=== PATIENT | female | born 1985 | race Caucasian/White ===

== ENCOUNTER 2023-08-28 11:05 | Outpatient (OUT) | payer OTHER, SELFPAY ==
[2023-08-28 11:26] LABS: Basophils Absolute Auto 0.2 10^3/uL (0.0-0.1); Eosinophils Absolute Auto 1.2 10^3/uL (0.0-0.7); Eosinophils Percent Auto 11.9 % (0.9-7.0); Hematocrit 40.5 % (36.0-48.0); Hemoglobin 13.3 g/dL (12.0-16.0); Immature Granulocytes Abs Auto 0.03 10^3/uL (0.00-0.03); Immature Granulocytes Pct Auto 0.3 % (0.0-0.5); Lymphocytes Absolute Auto 2.4 10^3/uL (1.2-3.8); Lymphocytes Percent Auto 24.7 % (20.5-60.0); Mean Corpuscular HGB Conc 32.8 g/dL (29.9-35.2); Mean Corpuscular Hemoglobin 29.3 pg (26.7-34.0); Mean Corpuscular Volume 89.2 fL (81.0-99.0); Monocytes Absolute Auto 0.6 10^3/uL (0.3-0.8); Monocytes Percent Auto 5.6 % (1.7-12.0); Neutrophils Absolute Auto 5.4 10^3/uL (1.4-6.5); Neutrophils Percent Auto 55.5 % (43.0-75.0); Platelet Count 327 10^3/uL (150-450); Red Blood Count 4.54 10^6/uL (4.20-5.40); Red Cell Distribution Width 13.4 % (11.0-15.0); White Blood Count 9.8 10^3/uL (4.0-11.0)
[2023-08-28 12:00] LABS: Alanine Aminotransferase 26 U/L (14-59); Albumin Globulin Ratio 0.9; Albumin Level 3.4 g/dL (3.4-5.0); Alkaline Phosphatase 84 U/L (46-116); Anion Gap 11.7; Aspartate Amino Transferase 15 U/L (15-37); BUN Creatinine Ratio 9.8; Bilirubin Total 0.2 mg/dL (0.2-1.0); Calcium 8.6 mg/dL (8.5-10.1); Carbon Dioxide 27.3 mmol/L (21.0-32.0); Chloride 105 mmol/L (98-107); Chol HDL Ratio 4.1; Cholesterol 164 mg/dL (<=200); Estimated GFR (African America >60 (>=60); Estimated GFR (Non-African Ame >60 (>=60); Globulin 3.6 g/dL; Glucose 108 mg/dL (74-106); HDL Cholesterol 40 mg/dL (40-60); LDL Cholesterol Calculated 94.8 mg/dL; Sodium 140 mmol/L (136-145); Thyroid Stimulating Hormone <0.007 uIU/mL (0.358-3.740); Triglycerides 146 mg/dL (<=150); VLDL CHOLESTEROL 29.2 mg/dL
[2023-08-28 12:32] LABS: Estimated Average Glucose 120 mg/dL; Glycohemoglobin A1C 5.8 % (4.5-6.2)
== END 2023-08-28 11:06 | disposition home or self-care (01) ==
LOC: LAB 11:07
PROVIDERS: PCP Family Medicine; Visit Provider Family Medicine
DX: Z00.00 Encounter for general adult medical examination without abnormal findings (principal); E78.5 Hyperlipidemia, unspecified; R73.09 Other abnormal glucose
CPT/HCPCS: 36415; 80053; 80061; 83036; 84436; 84443; 84481; 85025

== ENCOUNTER 2023-12-28 11:57 | Outpatient (OUT) | payer OTHER, SELFPAY ==
--- OUTSIDE RECORDS SUMMARY | 2023-12-28 12:09 | XMS_ITS | CCD ---
Author Organization [facility] Care Team Providers Care Continuous Mining Machine Operator Name Role Phone DR ARNULFO VELOZ Attending Unavailable IVAN, DR ARREDONDO Primary Care Unavailable IVAN, DR ARREDONDO Admitting Unavailable IVAN, DR ARREDONDO Admitting Unavailable IVAN, DR ARREDONDO Attending Unavailable IVAN, DR ARREDONDO Consulting Unavailable IVAN, DR ARREDONDO Primary Care Unavailable IVAN, DR ARREDONDO Attending Unavailable IVAN, DR ARREDONDO Consulting Unavailable IVAN, DR ARREDONDO Primary Care Unavailable IVAN, DR ARREDONDO Admitting Unavailable IVAN, DR ARREDONDO Attending Unavailable IVAN, DR ARREDONDO Primary Care Unavailable IVAN, DR ARREDONDO Admitting Unavailable Arnulfo Veloz MD Primary Care Provider [phone] ARNULFO VELOZ Primary Care Unavailable Allergies Allergy Classification Reported Allergen(s) Allergy Type Date of Onset Reaction(s) Facility (2 sources) Amoxicillin Drug Allergy [facility] Repository (1 source) Amoxicillin Drug Allergy 10-19-2015 [facility] Medications Current Medications Medication Drug Class(es) Dates Sig (Normalized) Sig (Original) indomethacin 50 mg oral capsule (1 source) Nonsteroidal Anti-inflammatory Drug Start: 01-23-2019 take 1 capsule by mouth three times daily as needed for pain indomethacin (INDOCIN) 50 MG capsule Take 1 capsule by mouth 3 times daily as needed for Pain (Headache) 12 capsule 0 01/23/2019 Active thyroid (senior living) 60 mg oral tablet (1 source) take 3 tablets by mouth once daily thyroid (ARMOUR) 60 MG tablet Take 180 mg by mouth daily 0 Active Problems Problem Classification Problem Date Documented Da te Episodic/Chronic Other non-traumatic joint disorders (2 sources) Ankle pain; Translations: [Ankle Pain] Onset: 06-27-2022 Episodic Sprains and strains (1 source) Sprain of ankle; Translations: [Sprain of other ligament of left ankle, initial encounter] Episodic Thyroid disorders (4 sources) Hypothyroidism, unspecified; Translations: [HYPOTHYROIDISM UNSPECIFIED] Onset: 09-13-2021 Chronic Results Test Name Value Interpretation Reference Range Facility XR ANKLE LEFT (MIN 3 VIEWS)o n 06-27-2022 XR ANKLE LEFT (MIN 3 VIEWS) EXAMINATION: THREE XRAY VIEWS OF THE LEFT ANKLE 06/27/2022 6:30 pm COMPARISON: None. HISTORY: Acute pain. FINDINGS: No acute fracture or dislocation. Minimal soft tissue swelling best seen on the lateral view. IMPRESSION: No acute osseous abnormality. Interpreted by: Sunny Cronin MD Signed by: Sunny Cronin MD 06/27/22 Final result Normal [facility] No acute osseous abnormality. [facility] EXAMINATION: THREE XRAY VIEWS OF THE LEFT ANKLE 06/27/2022 6:30 pm COMPARISON: None. HISTORY: Acute pain. FINDINGS: No acute fracture or dislocation. Minimal soft tissue swelling best seen on the lateral view. [facility] Sunny Cronin MD - 06/27/2022 EXAMINATION: THREE XRAY VIEWS OF THE LEFT ANKLE 06/27/2022 6:30 pm COMPARISON: None. HISTORY: Acute pain. FINDINGS: No acute fracture or dislocation. Minimal soft tissue swelling best seen on the lateral view. IMPRESSION: No acute osseous abnormality. [facility] Phone: Radiology Study observation (narrative) [facility]: XR ANKLE LEFT (MIN 3 VIEWS)O rdered By: Sunny Cronin on 06-27-2022 [facility]: FREE THYROXINE INDEX T7on FTI 3.59 Normal [facility] Comment on above: Performed By: #### T 7, TSH #### [facility] [address] [place], [place] [address] Dr. Oscar Burnett T3U 37.0 % Normal 23.5-40.5 [facility] Comment on above: Performed By: #### T 7, TSH #### [facility] [address] [place] [address] Dr. Oscar Burnett T4 [Mass/Vol] 9.70 ug/dL Normal 5.53-11.00 [facility] Comment on above: Performed By: #### T 7, TSH #### [facility] [address] [place] [address] Dr. Oscar Burnett TSHon 09-13-2021 TSH Qn m[IU]/L Critically low 0.470-4.680 [facility] Comment on above: Performed By: #### T 7, TSH #### [facility] [address] [place] [address] Dr. Oscar Burnett TSH RANGE SEE BELOW Normal [facility] Comment on above: Result Comment: <0.3 4 UIU/ml HYPERTHYROID 0.34-5.60 UIU/ml EUTHYROID >5.60 UIU/ml HYPOTHYROID Performed By: #### T 7, TSH #### [facility] [address] [place] [address] Dr. Oscar Burnett INSULINon 05-07-2021 Insulin 6.7 uIU/mL Normal 2.6-24.9 [facility] Comment on above: Performed By: #### I NSULIN #### [facility] [address] [place] [address] Dr. Oscar Burnett CBC AUTO DIFFon 05-06-2021 BASO # 0.2 103/ul Critically high 0.0-0.1 [facility] Comment on above: Performed By: #### C BC #### [facility] [address] [place] [address] Dr. Oscar Burnett Basophils/100 WBC (Bld) 2.2 % Critically high 0.2-2.0 [facility] Comment on above: Performed By: #### C BC #### [facility] [address] [place] [address] Dr. Oscar Burnett EO # 1.1 103/ul Critically high 0.0-0.7 [facility] Comment on above: Performed By: #### C BC #### [facility] [address] [place] [address] Dr. Oscar Burnett Eosinophils/100 WBC (Bld) 10.7 % Critically high 0.9-7.0 [facility] Comment on above: Performed By: #### C BC #### [facility] [address] [place] [address] Dr. Oscar Burnett Erythrocyte distribution width (RBC) [Ratio] 14.3 % Normal 11.0-15.0 [facility] Comment on above: Performed By: #### C BC #### [facility] [address] [place] [address] Dr. Oscar Burnett Hematocrit (Bld) [Volume fraction] 44.9 % Normal 36.0-48.0 [facility] Comment on above: Performed By: #### C BC #### [facility] [address] [place] [address] Dr. Oscar Burnett Hemoglobin (Bld) [Mass/Vol] 14.5 g/dL Normal 12.0-16.0 [facility] Comment on above: Performed By: #### C BC #### [facility] [address] [place] [address] Dr. Oscar Burnett IG # 0.02 10e3/ul Normal 0.00-0.03 [facility] Comment on above: Performed By: #### C BC #### [facility] [address] [place] [address] Dr. Oscar Burnett IG % 0.2 % Normal 0.0-0.5 [facility] Comment on above: Performed By: #### C BC #### [facility] [address] [place] [address] Dr. Oscar Burnett LYMPH # 3.5 103/ul Normal 1.2-3.8 [facility] Comment on above: Performed By: #### C BC #### [facility] [address] [place] [address] Dr. Oscar Burnett Lymphocytes/100 WBC (Bld) 34.4 % Normal 20.5-60.0 [facility] Comment on above: Performed By: #### C BC #### [facility] [address] [place] [address] Dr. Oscar Burnett MANUAL DIFF REQ NO Normal [facility] Comment on above: Performed By: #### C BC #### [facility] [address] [place] [address] Dr. Oscar Burnett MCH (RBC) [Entitic mass] 29.1 pg Normal 26.7-34.0 [facility] Comment on above: Performed By: #### C BC #### [facility] [address] [place] [address] Dr. Oscar Burnett MCHC (RBC) [Mass/Vol] 32.3 g/dL Normal 29.9-35.2 [facility] Comment on above: Performed By: #### C BC #### [facility] [address] [place] [address] Dr. Oscar Burnett MCV (RBC) [Entitic vol] 90.0 fL Normal 81.0-99.0 [facility] Comment on above: Performed By: #### C BC #### [facility] [address] [place] [address] Dr. Oscar Burnett MONO # 0.6 103/ul Normal 0.3-0.8 [facility] Comment on above: Performed By: #### C BC #### [facility] [address] [place] [address] Dr. Oscar Burnett Monocytes/100 WBC (Bld) 5.6 % Normal 1.7-12.0 [facility] Comment on above: Performed By: #### C BC #### [facility] [address] [place] [address] Dr. Oscar Burnett NEUT # 4.7 103/ul Normal 1.4-6.5 [facility] Comment on above: Performed By: #### C BC #### [facility] [address] [place] [address] Dr. Oscar Burnett Neutrophils/100 WBC (Bld) 46.9 % Normal 43.0-75.0 [facility] Comment on above: Performed By: #### C BC #### [facility] [address] [place] [address] Dr. Oscar Burnett Platelet mean volume (Bld) [Entitic vol] 10.1 fL Normal 9.5-13.5 [facility] Comment on above: Performed By: #### C BC #### [facility] [address] [place] [address] [address] Oscar Burnett PLT 357 103/ul Normal 150-450 [facility] Comment on above: Performed By: #### C BC #### [facility] [address] [place] [address] [address] Oscar Burnett RBC 4.99 106/ul Normal 4.20-5.40 [facility] Comment on above: Performed By: #### C BC #### [facility] [address] [place] [address] [address] Oscar Burnett WBC 10.1 103/ul Normal 4.0-11.0 [facility] Comment on above: Performed By: #### C BC #### [facility] [address] [place] [address] Dr. Oscar Burnett FREE THYROXINE INDEX T7on FTI 0.25 Normal [facility] Comment on above: Performed By: #### T 7, CMP, TSH, LIPID #### [facility] [address] [place] [address] [address] Oscar Burnett T3U 23.0 % Critically low 23.5-40.5 [facility] Comment on above: Performed By: #### T 7, CMP, TSH, LIPID #### [facility] [address] [place] [address] [address] Oscar Burnett T4 [Mass/Vol] 1.10 ug/dL Critically low 5.53-11.00 [facility] Comment on above: Performed By: #### T 7, CMP, TSH, LIPID #### [facility] [address] [place] [address] [address] Oscar Burnett GLYCOHEMOGLOBIN A1Con 2020 ADA RECOMMENDATION ADA THERAPEUTIC TARGET 6.0 - 7.0 ACTION SUGGESTED > 7.0 Normal [facility] Comment on above: Performed By: #### A 1C #### [facility] [address] [place] [address] Dr. Oscar Burnett Glucose [Mass/Vol] 123 mg/dL Normal [facility] Comment on above: Performed By: #### A 1C #### [facility] [address] [place] [address] [address] Oscar Burnett HbA1c (Bld) [Mass fraction] 5.9 % Normal <=6.0 [facility] Comment on above: Performed By: #### A 1C #### [facility] [address] [address] [address] Oscar Burnett IRONon 05-06-2021 Iron [Mass/Vol] 50.0 ug/dL Normal 37.0-170.0 [facility] Comment on above: Performed By: #### I GILDA #### [facility] [address] [place] [address] [address] Oscar Burnett LIPID PROFILEon 05-06-2021 CHOL-HDL RATIO NORM SEE BELOW Normal [facility] Comment on above: Result Comment: 3.3 - 4.4 LOW RISK 4.4 - 7.1 AVERAGE RISK 7.1 - 11.0 MODERATE RISK >11.0 HIGH RISK Performed By: #### T 7, CMP, TSH, LIPID #### [facility] [address] [address] [address] Oscar Burnett Cholesterol [Mass/Vol] 231 mg/dL Critically high <=200 [facility] Comment on above: Performed By: #### T 7, CMP, TSH, LIPID #### [facility] [address] [address] [address] Oscar Burnett Cholesterol in HDL [Mass/Vol] 46 mg/dL Normal [facility] Comment on above: Performed By: #### T 7, CMP, TSH, LIPID #### [facility] [address] [address] [address] Oscar Burnett Cholesterol in LDL [Mass/Vol] 148.4 mg/dL Normal [facility] Comment on above: Performed By: #### T 7, CMP, TSH, LIPID #### [facility] [address] [address] [address] Oscar Burnett Cholesterol.total/Ch olesterol in HDL [Mass ratio] 5.0 {ratio} Normal [facility] Comment on above: Performed By: #### T 7, CMP, TSH, LIPID #### [facility] [address] [address] [address] Oscar Burnett HDL NORMAL > or = 60 mg/dl - LOW CARDIOVASCULAR RISK <40 mg/dl - HIGH CARDIOVASCULAR RISK Normal [facility] Comment on above: Performed By: #### T 7, CMP, TSH, LIPID #### [facility] [address] [address] [address] Oscar Burnett LDL CALC NORMAL SEE BELOW Normal [facility] Comment on above: Result Comment: <100 mg/dl OPTIMAL 100 - 129 mg/dl NEAR OR ABOVE OPTIMAL 130 - 159 mg/dl BORDERLINE HIGH 160 - 189 mg/dl HIGH >190 mg/dl VERY HIGH Performed By: #### T 7, CMP, TSH, LIPID #### [facility] [address] [address] [address] Oscar Burnett Triglyceride [Mass/Vol] 183 mg/dL Critically high <=150 [facility] Comment on above: Performed By: #### T 7, CMP, TSH, LIPID #### [facility] [address] [address] [address] Oscar Burnett VLDL CALC 36.6 mg/dL Normal [facility] Comment on above: Performed By: #### T 7, CMP, TSH, LIPID #### [facility] [address] [address] [address] Oscar Burnett PROF 14(COMP METB)on 021 Albumin [Mass/Vol] 3.9 g/dL Normal 3.5-5.0 [facility] Comment on above: Performed By: #### T 7, CMP, TSH, LIPID #### [facility] [address] [address] [address] Oscar Burnett Albumin/Globulin [Mass ratio] 1.1 {ratio} Normal [facility] Comment on above: Performed By: #### T 7, CMP, TSH, LIPID #### [facility] [address] [address] [address] Oscar Burnett ALP [Catalytic activity/Vol] 75 U/L Normal 38-126 [facility] Comment on above: Performed By: #### T 7, CMP, TSH, LIPID #### [facility] [address] [place] [address] Dr. Oscar Burnett ALT [Catalytic activity/Vol] 26 U/L Normal 9-52 [facility] Comment on above: Performed By: #### T 7, CMP, TSH, LIPID #### [facility] [address] [place] [address] Dr. Oscar Burnett Anion gap [Moles/Vol] 9.0 mmol/L Normal [facility] Comment on above: Performed By: #### T 7, CMP, TSH, LIPID #### [facility] [address] [place] [address] Dr. Oscar Burnett AST [Catalytic activity/Vol] 22 U/L Normal 14-36 [facility] Comment on above: Performed By: #### T 7, CMP, TSH, LIPID #### [facility] [address] [place] [address] Dr. Oscar Burnett Bilirubin [Mass/Vol] 0.3 mg/dL Normal 0.2-1.3 [facility] Comment on above: Performed By: #### T 7, CMP, TSH, LIPID #### [facility] [address] [place] [address] Dr. Oscar Burnett Calcium [Mass/Vol] 8.6 mg/dL Normal 8.4-10.2 [facility] Comment on above: Performed By: #### T 7, CMP, TSH, LIPID #### [facility] [address] [place] [address] Dr. Oscar Burnett Chloride [Moles/Vol] 102 mmol/L Normal 98-107 [facility] Comment on above: Performed By: #### T 7, CMP, TSH, LIPID #### [facility] [address] [place] [address] Dr. Oscar Burnett CO2 [Moles/Vol] 28.5 mmol/L Normal 22.0-30.0 [facility] Comment on above: Performed By: #### T 7, CMP, TSH, LIPID #### [facility] [address] [address] [address] Oscar Burnett Creatinine [Mass/Vol] 1.18 mg/dL Critically high 0.52-1.04 [facility] Comment on above: Performed By: #### T 7, CMP, TSH, LIPID #### [facility] [address] [place] [address] [address] Oscar Burnett EGFR-AF TUNISIAN >60 Normal >=60 [facility] Comment on above: Performed By: #### T 7, CMP, TSH, LIPID #### [facility] [address] [address] [address] Oscar Burnett EGFR-NON AF TUNISIAN 52 mL/min/1.73m2 Critically low >=60 [facility] Comment on above: Performed By: #### T 7, CMP, TSH, LIPID #### [facility] [address] [place] [address] Dr. Oscar Burnett Globulin (S) [Mass/Vol] 3.5 g/dL Normal [facility] Comment on above: Performed By: #### T 7, CMP, TSH, LIPID #### [facility] [address] [address] [address] Oscar Burnett Glucose [Mass/Vol] 98 mg/dL Normal 74-106 [facility] Comment on above: Performed By: #### T 7, CMP, TSH, LIPID #### [facility] [address] [address] [address] Oscar Burnett Potassium [Moles/Vol] 3.5 mmol/L Normal 3.4-5.0 [facility] Comment on above: Performed By: #### T 7, CMP, TSH, LIPID #### [facility] [address] [address] [address] Oscar Burnett Protein [Mass/Vol] 7.4 g/dL Normal 6.1-8.2 [facility] Comment on above: Performed By: #### T 7, CMP, TSH, LIPID #### [facility] [address] [address] [address] Oscar Burnett Sodium [Moles/Vol] 136 mmol/L Critically low 137-145 [facility] Comment on above: Performed By: #### T 7, CMP, TSH, LIPID #### [facility] [address] [address] [address] Oscar Burnett Urea nitrogen [Mass/Vol] 8.0 mg/dL Normal 7.0-17.0 [facility] Comment on above: Performed By: #### T 7, CMP, TSH, LIPID #### [facility] [address] [place] [address] Dr. Oscar Burnett Urea nitrogen/Creatinine [Mass ratio] 6.8 mg/mg Normal [facility] Comment on above: Performed By: #### T 7, CMP, TSH, LIPID #### [facility] [address] [place] [address] Dr. Oscar Burnett TSHon 05-06-2021 TSH Qn m[IU]/L Critically high 0.470-4.680 [facility] Comment on above: Performed By: #### T 7, CMP, TSH, LIPID #### [facility] [address] [place] [address] Dr. Oscar Burnett TSH RANGE SEE BELOW Normal [facility] Comment on above: Result Comment: <0.3 4 UIU/ml HYPERTHYROID 0.34-5.60 UIU/ml EUTHYROID >5.60 UIU/ml HYPOTHYROID Performed By: #### T 7, CMP, TSH, LIPID #### [facility] [address] [place] [address] Dr. Oscar Burnett Vital Signs Date Time Vital Sign Value Performing Clinician Faci lity 06-27-2022 20:38-0500 Heart rate 88 /min Arnulfo Veloz MD Work Phone: [facility] 06-27-2022 20:00-0500 Diastolic blood pressure 79 mm[Hg] Arnulfo Veloz MD Work Phone: [facility] 06-27-2022 20:00-0500 Respiratory rate 18 /min Arnulfo Veloz MD Work Phone: [facility] 06-27-2022 20:00-0500 SaO2% (BldA) [Mass fraction] 100 % Arnulfo Veloz MD Work Phone: [facility] [employer] 06-27-2022 20:00-0500 Systolic blood pressure 134 mm[Hg] Arnulfo Veloz MD [facility] 06-27-2022 18:21-0500 Body height 165.1 cm Arnulfo Veloz MD Work Phone: [facility] 06-27-2022 18:21-0500 Body mass index (BMI) [Ratio] 28.46 kg/m2 Arnulfo Veloz MD Work Phone: [facility] 06-27-2022 18:21-0500 Body temperature 98.1 [degF] Arnulfo Veloz MD Work Phone: [facility] 06-27-2022 18:21-0500 Body weight 77.56 kg Arnulfo Veloz MD Work Phone: [facility] Encounters Encounter Date Encounter Type Care Provider Facility Start: 06-27-2022 Emergency department patient visit [facility] Start: 06-27-2022 End: 06-27-2022 Emergency department patient visit Arnulfo Veloz MD Work Phone: [facility] ED Comment on above: Sprain of other liga ment of left ankle, initial encounter (Primary Dx) Start: 09-13-2021 End: 09-14-[address] ARNULFO VELOZ Facility:[facility] Start: 06-10-[address] ARNULFO VELOZ Facility :[facility] Start: 05-14-2021 Encounter for genera l adult medical examination without abnormal findings DR ARNULFO VELOZ [facility] Start: 05-06-2021 End: 05-07-[address] ARNULFO VELOZ Facility:[facility] Start: 05-06-2021 End: 05-07-2021 Encounter for general adult medical examination without abnormal findings DR ARNULFO VELOZ Facility:[facility] Start: 03-25-[address] ARNULFO VELOZ Facility :[facility] Procedures Date Procedure Procedure Detail Performing Clinician Start: 06-27-2022 Radex ankle complete minimum 3 views Inga Miles MD Work Phone: Plan of Treatment Date Care Activity Detail Author Start: 02-14-2022 Influenza vaccination Flu vaccine (# 1) [facility] [employer] Start: 09-30-2019 Diabetes screen Diabetes screen [facility] Start: 2014 Screening for malign ant neoplasm of cervix [facility] Start: 2005 Screening for malign ant neoplasm of cervix Pap smear [facility] Start: 09-30-2003 DTaP/Tdap/Td vaccine (1 - Tdap) DTaP/Tdap/Td vaccine (1 - Tdap) [facility] Start[facility] 2002 Hepatitis C screening Hepatitis C sc reen [facility] Start: 09-30-1999 HIV screening HIV screen [facility] Start: 1996 Depression Screen Depression Screen [facility] Start: 1985 Varicella vaccine (1 of 2 - 2-dose childhood series) Varicella vaccine (1 of 2 - 2-dose childhood series) [facility] Start: 04-01-1985 COVID-19 Vaccine (#1) COVID-19 Vacci ne (#1) [facility] Payers Date Payer Category Payer Unknown [id number] 2.16.84 [id number] 1984 Unknown [id number] 2.16.84 [id number] 1984 Unknown [id number] 2.16.84 [id number] 1984 Unknown [id number] 2.16.84 [id number] 1984 Unknown [id number] [id number] 1959 Self-pay [id number] 1959 Unknown [id number] Social History Date Type Detail Facility Start: 01-23-2019 [facility] History of tobacco use Cigarette Smoker B ON [employer] Phone: Start: 01-23-2019 Cigarettes smoked current (pack per day) - Reported 0.5 [facility] [employer] Phone: Start: 01-23-2019 Tobacco use and exposure Smoke less tobacco non-user [facility] [employer] Phone: Start: 1984 Sex Assigned At Not on file [facility] [employer] Phone: Start: 06-17-2022 End: 06-27-2022 Exposure to SARS-CoV-2 (event) Not sure [facility] [employer] Phone: Hospital Discharge instructions 06-27-2022 Discharge InstructionsAttachments Note Date & Type Note Facility 06-27-2022 Hospital Discharg e instructions Remigio Hagen PA-C - 06/27/2022 8:30 PM EST Follow-up with orthopedic doctor 7 to 10 days for reevaluation. Follow crutch walking RICE instructions wear ankle splint for comfort. Take Tylenol or Motrin as directed for discomfort. Promptly return to emergency department for new, changing, worsening of symptoms or other concerns. The following attachments cannot be sent through Care Everywhere.Ankle Sprain (Czech)RICE: General Info (Czech)Crutch Instructions: General Info (Czech)documented in this encounter [employer] Phone: Evaluation note Note Date & Type Note Facility Evaluation note Diagnosis Sprain of other ligament of left ankle, initial encounter- Primary documented in this encounter [employer] Phone: Summary Purpose Family History No Family History Records FoundNo Family History Records Found Advance Directives No Advanced Directives Records FoundNo Advanced Directives Records Found Additional Source Comments INFORMATION SOURCE (unrecogn ized section and content) DATE CREATED AUTHOR 09/16/2021 [facility] DATE CREATED AUTHOR AUTHOR'S ORGANIZ ATION [facility] Reason for Visit (unrecogniz ed section and content) Reason Comments Ankle Pain Fell down 2 steps th inks she rolled it pain on lateral left ankle minimal swelling pulses intact, this happened at 1630 today Care Teams (unrecognized sec tion and content) [employer] Relationship Specialty Start Date End Date Arnulfo Veloz MD [address] [place] [address] PCP - General 10/19/15 FOR RECORDS PERTAINING TO PATIENTS WHO ARE OR HAVE BEEN ENROLLED IN A CHEMICAL DEPENDENCY/SUBSTANCEABUSE PROGRAM, SOME INFORMATION MAY BE OMITTED. This clinical summary was aggregated from multiple sources. Caution should be exercised in using it in the provision of clinical care. This summary normalizes information from multiple sources, and as a consequence, information in this document may materially change the coding, format and clinical context of patient data. In addition, data may be omitted in some cases. CLINICAL DECISIONS SHOULD BE BASED ON THE PRIMARY CLINICAL RECORDS. [facility] [employer] provides no warranty or guarantee of the accuracy or completeness of information in this document.
[2023-12-28 12:44] LABS: Basophils Absolute Auto 0.2 10^3/uL (0.0-0.1); Basophils Percent Auto 2.7 % (0.2-2.0); Hematocrit 41.5 % (36.0-48.0); Hemoglobin 13.7 g/dL (12.0-16.0); Immature Granulocytes Abs Auto 0.01 10^3/uL (0.00-0.03); Immature Granulocytes Pct Auto 0.1 % (0.0-0.5); Lymphocytes Absolute Auto 2.3 10^3/uL (1.2-3.8); Lymphocytes Percent Auto 28.8 % (20.5-60.0); Mean Corpuscular Hemoglobin 28.7 pg (26.7-34.0); Mean Corpuscular Volume 86.8 fL (81.0-99.0); Mean Platelet Volume 10.3 fL (9.5-13.5); Monocytes Absolute Auto 0.6 10^3/uL (0.3-0.8); Monocytes Percent Auto 7.6 % (1.7-12.0); Neutrophils Absolute Auto 3.9 10^3/uL (1.4-6.5); Neutrophils Percent Auto 48.8 % (43.0-75.0); Platelet Count 344 10^3/uL (150-450); Red Blood Count 4.78 10^6/uL (4.20-5.40); Red Cell Distribution Width 13.3 % (11.0-15.0); White Blood Count 7.9 10^3/uL (4.0-11.0)
[2023-12-28 13:10] LABS: Estimated Average Glucose 120 mg/dL; Glycohemoglobin A1C 5.8 % (4.5-6.2)
[2023-12-28 13:20] LABS: Alanine Aminotransferase 32 U/L (14-59); Albumin Globulin Ratio 1.1; Albumin Level 3.7 g/dL (3.4-5.0); Alkaline Phosphatase 76 U/L (46-116); Anion Gap 14.1; Aspartate Amino Transferase 15 U/L (15-37); BUN Creatinine Ratio 9.2; Bilirubin Total 0.3 mg/dL (0.2-1.0); Calcium 8.5 mg/dL (8.5-10.1); Carbon Dioxide 24.9 mmol/L (21.0-32.0); Chloride 104 mmol/L (98-107); Chol HDL Ratio 3.7; Cholesterol 151 mg/dL (<=200); Estimated GFR (African America >60 (>=60); Estimated GFR (Non-African Ame >60 (>=60); Free T3 4.36 pg/mL (2.18-3.98); Globulin 3.4 g/dL; Glucose 124 mg/dL (74-106); HDL Cholesterol 41 mg/dL (40-60); LDL Cholesterol Calculated 94.2 mg/dL; Sodium 139 mmol/L (136-145); Thyroid Stimulating Hormone <0.007 uIU/mL (0.358-3.740); Total Protein 7.1 g/dL (6.4-8.2); Triglycerides 79 mg/dL (<=150); VLDL CHOLESTEROL 15.8 mg/dL
[2023-12-29 10:09] LABS: Insulin 10.8 uIU/mL (2.6-24.9)
== END 2023-12-28 11:58 | disposition home or self-care (01) ==
LOC: LAB 12:00
PROVIDERS: PCP Family Medicine; Visit Provider Family Medicine
DX: E03.9 Hypothyroidism, unspecified (principal); G43.909 Migraine, unspecified, not intractable, without status migrainosus; F17.200 Nicotine dependence, unspecified, uncomplicated
CPT/HCPCS: 36415; 80053; 80061; 82306; 82607; 82746; 83036; 83525; 83540; 84436; 84443; 84481; 85025

== ENCOUNTER 2024-01-31 10:25 | Outpatient (OUT) | payer OTHER, SELFPAY ==
--- NOTE | 2024-01-31 10:28 | US_ITS ---
The [address] [address] Patient Name: JUNE COTO MRN: [id number] date: 1985 Sex: F Assigned Patient Location: US Current Patient Location: Accession/Order Number: [id number] Exam Date: 01/31/2024 10:29 Report Date: 02/01/2024 04:48 At the request of: ARNULFO LOVE Procedure: US right upper quadrant EXAMINATION: US right upper quadrant HISTORY: Right Upper Quadrant Pain R10.11 COMPARISON: No relevant comparison available. TECHNIQUE: Transabdominal evaluation of the right upper quadrant. FINDINGS: LIVER: Normal size and echotexture. Color Doppler demonstrates patent hepatic veins. PORTAL VEIN: Duplex Doppler demonstrates normal hepatopetal flow pattern with flow velocity averaging 32 cm/s. GALLBLADDER: No visible gallstones, wall thickening, or pericholecystic free fluid. Negative sonographic Stoddard's sign. BILIARY: No abnormal dilation or stones. Common bile duct diameter is within normal limits. PANCREAS: No visible mass, abnormal atrophy, or duct dilation. KIDNEY: No hydronephrosis. No visible mass or stones. Size: 10.8 x 5.0 x 4.7 cm US/US right upper quadrant IMPRESSION: 1. No acute or suspicious right upper quadrant findings. Electronically authenticated by: JOHNNY SESAY Date: 02/01/2024 04:48
--- OUTSIDE RECORDS SUMMARY | 2024-01-31 10:48 | XMS_ITS | CCD ---
Author Organization [facility] Care Team Providers Care [employer] Name Role Phone DR ARNULFO VELOZ Attending [...] Unavailable Arnulfo Veloz MD Primary Care Provider [phone] ARNULFO VELOZ Primary Care Unavailable Allergies Allergy Classification Reported Allergen(s) Allergy Type Date of Onset Reaction(s) Facility (2 sources) Amoxicillin Drug Allergy [facility] Repository (1 source) Amoxicillin Drug Allergy 10-19-[address] [facility] Medications Current Medications Medication Drug Class(es) Dates Sig (Normalized) Sig (Original) indomethacin 50 mg oral capsule (1 source) Nonsteroidal Anti-inflammatory Drug Start: 01-23-2019 take 1 capsule by mouth three times daily as needed for pain indomethacin (INDOCIN) 50 MG capsule Take 1 capsule by mouth 3 times daily as needed for Pain (Headache) 12 capsule 0 01/23/2019 Active thyroid (shelter) 60 mg oral tablet (1 source) take [...] Sunny Cronin MD 06/27/22 Final result Normal [facility] No acute osseous abnormality. [facility] EXAMINATION: THREE XRAY VIEWS OF THE LEFT ANKLE 06/27/2022 6:30 pm COMPARISON: None. HISTORY: Acute pain. FINDINGS: No acute fracture or dislocation. Minimal soft tissue swelling best seen on the lateral view. [facility] Sunny Cronin MD - 06/27/2022 EXAMINATION: THREE XRAY VIEWS OF THE LEFT ANKLE 06/27/2022 6:30 pm COMPARISON: None. HISTORY: Acute pain. FINDINGS: No acute fracture or dislocation. Minimal soft tissue swelling best seen on the lateral view. IMPRESSION: No acute osseous abnormality. [email or web address] Phone: Radiology Study observation (narrative) [facility] [employer] Phone: XR ANKLE LEFT (MIN 3 VIEWS)O rdered By: Sunny Cronin on 06-27-2022 [facility] [employer] Phone: FREE THYROXINE INDEX T7on FTI 3.59 Normal [facility] Comment on above: Performed By: #### T 7, TSH #### [facility] [address] [place] [address] Dr. Oscar Burnett T3U 37.0 % Normal 23.5-40.5 [facility] Comment on above: Performed By: #### T 7, TSH #### [facility] [address] [address] [address] Oscar Burnett T4 [Mass/Vol] 9.70 ug/dL Normal 5.53-11.00 [facility] Comment on above: Performed By: #### T 7, TSH #### [facility] [address] [place] [address] Dr. Oscar Burnett TSHon 09-13-2021 TSH Qn m[IU]/L Critically low 0.470-4.680 [facility] Comment on above: Performed By: #### T 7, TSH #### [facility] [address] [place] [address] Dr. Oscar Burnett TSH RANGE SEE BELOW Normal [facility] Comment on above: Result Comment: <0.3 4 UIU/ml HYPERTHYROID 0.34-5.60 UIU/ml EUTHYROID >5.60 UIU/ml HYPOTHYROID Performed By: #### T 7, TSH #### [facility] [address] [place] [address] Dr. Oscar Burnett INSULINon 05-07-2021 Insulin 6.7 uIU/mL Normal 2.6-24.9 [facility] Comment on above: Performed By: #### I NSULIN #### [facility] [address] [place] [address] Dr. Oscar Burnett CBC AUTO DIFFon 05-06-2021 BASO # 0.2 103/ul Critically high 0.0-0.1 [facility] Comment on above: Performed By: #### C BC #### [facility] [address] [place] [address] Dr. Oscar Burnett Basophils/100 WBC (Bld) 2.2 % Critically high 0.2-2.0 [facility] Comment on above: Performed By: #### C BC #### [facility] [address] [place] [address] Dr. Oscar Burnett EO # 1.1 103/ul Critically high 0.0-0.7 [facility] Comment on above: Performed By: #### C BC #### [facility] [address] [place] [address] Dr. Oscar Burnett Eosinophils/100 WBC (Bld) 10.7 % Critically high 0.9-7.0 [facility] Comment on above: Performed By: #### C BC #### [facility] [address] [place] [address] Dr. Oscar Burnett Erythrocyte distribution width (RBC) [Ratio] 14.3 % Normal 11.0-15.0 [facility] Comment on above: Performed By: #### C BC #### [facility] [address] [place] [address] Dr. Oscar Burnett Hematocrit (Bld) [Volume fraction] 44.9 % Normal 36.0-48.0 [facility] Comment on above: Performed By: #### C BC #### [facility] [address] [place] [address] Dr. Oscar Burnett Hemoglobin (Bld) [Mass/Vol] 14.5 g/dL Normal 12.0-16.0 [facility] Comment on above: Performed By: #### C BC #### [facility] [address] [place] [address] Dr. Oscar Burnett IG # 0.02 10e3/ul Normal 0.00-0.03 [facility] Comment on above: Performed By: #### C BC #### [facility] [address] [place] [address] Dr. Oscar Burnett IG % 0.2 % Normal 0.0-0.5 [facility] Comment on above: Performed By: #### C BC #### [facility] [address] [place] [address] Dr. Oscar Burnett LYMPH # 3.5 103/ul Normal 1.2-3.8 [facility] Comment on above: Performed By: #### C BC #### [facility] [address] [place] [address] Dr. Oscar Burnett Lymphocytes/100 WBC (Bld) 34.4 % Normal 20.5-60.0 [facility] Comment on above: Performed By: #### C BC #### [facility] [address] [place] [address] Dr. Oscar Burnett MANUAL DIFF REQ NO Normal [facility] Comment on above: Performed By: #### C BC #### [facility] [address] [address] [address] Oscar Burnett MCH (RBC) [Entitic mass] 29.1 pg Normal 26.7-34.0 [facility] Comment on above: Performed By: #### C BC #### [facility] [address] [place] [address] Dr. Oscar Burnett MCHC (RBC) [Mass/Vol] 32.3 g/dL Normal 29.9-35.2 [facility] Comment on above: Performed By: #### C BC #### [facility] [address] [place] [address] Dr. Oscar Burnett MCV (RBC) [Entitic vol] 90.0 fL Normal 81.0-99.0 [facility] Comment on above: Performed By: #### C BC #### [facility] [address] [place] [address] Dr. Oscar Burnett MONO # 0.6 103/ul Normal 0.3-0.8 [facility] Comment on above: Performed By: #### C BC #### [facility] [address] [place] [address] Dr. Oscar Burnett Monocytes/100 WBC (Bld) 5.6 % Normal 1.7-12.0 [facility] Comment on above: Performed By: #### C BC #### [facility] [address] [place] [address] Dr. Oscar Burnett NEUT # 4.7 103/ul Normal 1.4-6.5 [facility] Comment on above: Performed By: #### C BC #### [facility] [address] [place] [address] Dr. Oscar Burnett Neutrophils/100 WBC (Bld) 46.9 % Normal 43.0-75.0 [facility] Comment on above: Performed By: #### C BC #### [facility] [address] [place] [address] Dr. Oscar Burnett Platelet mean volume (Bld) [Entitic vol] 10.1 fL Normal 9.5-13.5 [facility] Comment on above: Performed By: #### C BC #### [facility] [address] [address] [address] Oscar Burnett PLT 357 103/ul Normal 150-450 [facility] Comment on above: Performed By: #### C BC #### [facility] [address] [address] [address] Oscar Burnett RBC 4.99 106/ul Normal 4.20-5.40 [facility] Comment on above: Performed By: #### C BC #### [facility] [address] [address] [address] Oscar Burnett WBC 10.1 103/ul Normal 4.0-11.0 [facility] Comment on above: Performed By: #### C BC #### [facility] [address] [address] [address] Oscar Burnett FREE THYROXINE INDEX T7on FTI 0.25 Normal [facility] Comment on above: Performed By: #### T 7, CMP, TSH, LIPID #### [facility] [address] [address] [address] Oscar Burnett T3U 23.0 % Critically low 23.5-40.5 [facility] Comment on above: Performed By: #### T 7, CMP, TSH, LIPID #### [facility] [address] [address] [address] Oscar Burnett T4 [Mass/Vol] 1.10 ug/dL Critically low 5.53-11.00 [facility] Comment on above: Performed By: #### T 7, CMP, TSH, LIPID #### [facility] [address] [address] [address] Oscar Burnett GLYCOHEMOGLOBIN A1Con 2020 ADA RECOMMENDATION ADA THERAPEUTIC TARGET 6.0 - 7.0 ACTION SUGGESTED > 7.0 [facility] Comment on above: Performed By: #### A 1C #### [facility] [address] [address] [address] Oscar Burnett Glucose [Mass/Vol] 123 mg/dL Normal [facility] Comment on above: Performed By: #### A 1C #### [facility] [address] [address] [address] Oscar Burnett HbA1c (Bld) [Mass fraction] 5.9 % Normal <=6.0 [facility] Comment on above: Performed By: #### A 1C #### [facility] [address] [address] [address] Oscar Burnett IRONon 05-06-2021 Iron [Mass/Vol] 50.0 ug/dL Normal 37.0-170.0 [facility] Comment on above: Performed By: #### I GILDA #### [facility] [address] [address] [address] Oscar Burnett LIPID PROFILEon 05-06-2021 CHOL-HDL RATIO NORM SEE BELOW Normal [facility] Comment on above: Result Comment: 3.3 - 4.4 LOW RISK 4.4 - 7.1 AVERAGE RISK 7.1 - 11.0 MODERATE RISK >11.0 HIGH RISK Performed By: #### T 7, CMP, TSH, LIPID #### [facility] [address] [address] [address] Oscar Burnett Cholesterol [Mass/Vol] 231 mg/dL Critically high <=200 [facility] Comment on above: Performed By: #### T 7, CMP, TSH, LIPID #### [facility] [address] [address] [address] Oscar Burnett Cholesterol in HDL [Mass/Vol] 46 mg/dL Normal [facility] Comment on above: Performed By: #### T 7, CMP, TSH, LIPID #### [facility] [address] [address] [address] Oscar Burnett Cholesterol in LDL [Mass/Vol] 148.4 mg/dL Normal [facility] Comment on above: Performed By: #### T 7, CMP, TSH, LIPID #### [facility] [address] [address] [address] Oscar Burnett Cholesterol.total/Ch olesterol in HDL [Mass ratio] 5.0 {ratio} Normal [facility] Comment on above: Performed By: #### T 7, CMP, TSH, LIPID #### [facility] [address] [address] [address] Oscar Burnett HDL NORMAL > or = 60 mg/dl - LOW CARDIOVASCULAR RISK <40 mg/dl - HIGH CARDIOVASCULAR RISK Normal [facility] Comment on above: Performed By: #### T 7, CMP, TSH, LIPID #### [facility] [address] [address] [address] Oscar Burnett LDL CALC NORMAL SEE BELOW Normal [facility] Comment on above: Result Comment: <100 mg/dl OPTIMAL 100 - 129 mg/dl NEAR OR ABOVE OPTIMAL 130 - 159 mg/dl BORDERLINE HIGH 160 - 189 mg/dl HIGH >190 mg/dl VERY HIGH Performed By: #### T 7, CMP, TSH, LIPID #### [facility] [address] [address] [address] Oscar Burnett Triglyceride [Mass/Vol] 183 mg/dL Critically high <=150 [facility] Comment on above: Performed By: #### T 7, CMP, TSH, LIPID #### [facility] [address] [address] [address] Oscar Burnett VLDL CALC 36.6 mg/dL Normal [facility] Comment on above: Performed By: #### T 7, CMP, TSH, LIPID #### [facility] [address] [address] [address] Oscar Burnett PROF 14(COMP METB)on 021 Albumin [Mass/Vol] 3.9 g/dL Normal 3.5-5.0 [facility] Comment on above: Performed By: #### T 7, CMP, TSH, LIPID #### [facility] [address] [address] [address] Oscar Burnett Albumin/Globulin [Mass ratio] 1.1 {ratio} Normal [facility] Comment on above: Performed By: #### T 7, CMP, TSH, LIPID #### [facility] [address] [address] [address] Oscar Burnett ALP [Catalytic activity/Vol] 75 U/L Normal 38-126 [facility] Comment on above: Performed By: #### T 7, CMP, TSH, LIPID #### [facility] [address] [address] [address] Oscar Burnett ALT [Catalytic activity/Vol] 26 U/L Normal 9-52 [facility] Comment on above: Performed By: #### T 7, CMP, TSH, LIPID #### [facility] [address] [place] [address] Dr. Oscar Burnett Anion gap [Moles/Vol] 9.0 mmol/L Normal [facility] Comment on above: Performed By: #### T 7, CMP, TSH, LIPID #### [facility] [address] [place] [address] Dr. Oscar Burnett AST [Catalytic activity/Vol] 22 U/L Normal 14-36 [facility] Comment on above: Performed By: #### T 7, CMP, TSH, LIPID #### [facility] [address] [place] [address] Dr. Oscar Burnett Bilirubin [Mass/Vol] 0.3 mg/dL Normal 0.2-1.3 [facility] Comment on above: Performed By: #### T 7, CMP, TSH, LIPID #### [facility] [address] [place] [address] Dr. Oscar Burnett Calcium [Mass/Vol] 8.6 mg/dL Normal 8.4-10.2 [facility] Comment on above: Performed By: #### T 7, CMP, TSH, LIPID #### [facility] [address] [place] [address] Dr. Oscar Burnett Chloride [Moles/Vol] 102 mmol/L Normal 98-107 [facility] Comment on above: Performed By: #### T 7, CMP, TSH, LIPID #### [facility] [address] [place] [address] Dr. Oscar Burnett CO2 [Moles/Vol] 28.5 mmol/L Normal 22.0-30.0 [facility] Comment on above: Performed By: #### T 7, CMP, TSH, LIPID #### [facility] [address] [place] [address] Dr. Oscar Burnett Creatinine [Mass/Vol] 1.18 mg/dL Critically high 0.52-1.04 [facility] Comment on above: Performed By: #### T 7, CMP, TSH, LIPID #### [facility] [address] [address] [address] Oscar Burnett EGFR-AF LEBANESE >60 Normal >=60 [facility] Comment on above: Performed By: #### T 7, CMP, TSH, LIPID #### [facility] [address] [address] [address] Oscar Burnett EGFR-NON AF LEBANESE 52 mL/min/1.73m2 Critically low >=60 [facility] Comment on above: Performed By: #### T 7, CMP, TSH, LIPID #### [facility] [address] [place] [address] Dr. Oscar Burnett Globulin (S) [Mass/Vol] 3.5 g/dL Normal [facility] Comment on above: Performed By: #### T 7, CMP, TSH, LIPID #### [facility] [address] [place] [address] Dr. Oscar Burnett Glucose [Mass/Vol] 98 mg/dL Normal 74-106 [facility] Comment on above: Performed By: #### T 7, CMP, TSH, LIPID #### [facility] [address] [place] [address] Dr. Oscar Burnett Potassium [Moles/Vol] 3.5 mmol/L Normal 3.4-5.0 [facility] Comment on above: Performed By: #### T 7, CMP, TSH, LIPID #### [facility] [address] [place] [address] Dr. Oscar Burnett Protein [Mass/Vol] 7.4 g/dL Normal 6.1-8.2 [facility] Comment on above: Performed By: #### T 7, CMP, TSH, LIPID #### [facility] [address] [place] [address] Dr. Oscar Burnett Sodium [Moles/Vol] 136 mmol/L Critically low 137-145 [facility] Comment on above: Performed By: #### T 7, CMP, TSH, LIPID #### [facility] [address] [address] [address] Oscar Burnett Urea nitrogen [Mass/Vol] 8.0 mg/dL Normal 7.0-17.0 [facility] Comment on above: Performed By: #### T 7, CMP, TSH, LIPID #### [facility] [address] [address] [address] Oscar Burnett Urea nitrogen/Creatinine [Mass ratio] 6.8 mg/mg Normal [facility] Comment on above: Performed By: #### T 7, CMP, TSH, LIPID #### [facility] [address] [address] [address] Oscar Burnett TSHon 05-06-2021 TSH Qn m[IU]/L Critically high 0.470-4.680 [facility] Comment on above: Performed By: #### T 7, CMP, TSH, LIPID #### [facility] [address] [address] [address] Oscar Burnett TSH RANGE SEE BELOW Normal [facility] Comment on above: Result Comment: <0.3 4 UIU/ml HYPERTHYROID 0.34-5.60 UIU/ml EUTHYROID >5.60 UIU/ml HYPOTHYROID Performed By: #### T 7, CMP, TSH, LIPID #### [facility] [address] [place] [address] Dr. Oscar Burnett Vital Signs Date Time Vital Sign Value Performing Clinician Usmani venus 06-27-2022 20:38-0500 Heart rate 88 /min Arnulfo Veloz MD Work Phone: [facility] 06-27-2022 20:00-0500 Diastolic blood pressure 79 mm[Hg] Arnulfo Veloz MD Work Phone: [facility] 06-27-2022 20:00-0500 Respiratory rate 18 /min Arnulfo Veloz MD Work Phone: [facility] 06-27-2022 20:00-0500 SaO2% (BldA) [Mass fraction] 100 % Arnulfo Veloz MD Work Phone: [facility] [employer] 06-27-2022 20:00-0500 Systolic blood pressure 134 mm[Hg] Arnulfo Veloz MD Work Phone: [facility] [employer] 06-27-2022 18:21-0500 Body height 165.1 cm Arnulfo Veloz MD Work Phone: [facility] 06-27-2022 18:21-0500 Body mass index (BMI) [Ratio] 28.46 kg/m2 Arnulfo Veloz MD Work Phone: [facility] 06-27-2022 18:21-0500 Body temperature 98.1 [degF] Arnulfo Veloz MD Work Phone: [facility] 06-27-2022 18:21-0500 Body weight 77.56 kg Arnulfo Veloz MD Work Phone: [facility] Encounters Encounter Date Encounter Type Care Provider Facility Start: 06-27-2022 Emergency department patient visit [facility] Start: 06-27-2022 End: 06-27-2022 Emergency department patient visit Arnulfo Veloz MD Work Phone: [facility] ED Comment on above: Sprain of other liga ment of left ankle, initial encounter (Primary Dx) Start: 09-13-2021 End: 09-14-[address] ARNULFO VELOZ Facility:[facility] Start: 06-10-[address] ARNULFO VELOZ Facility :[facility] Start: 05-14-2021 Encounter for genera l adult medical examination without abnormal findings DR ARNULFO VELOZ [facility] Start: 05-06-2021 End: 05-07-[address] ARNULFO [...] 02-14-2022 Influenza vaccination Flu vaccine (# 1) [facility] Start: 09-30-2019 Diabetes screen Diabetes screen [facility] Start: 2014 Screening for malign ant neoplasm of cervix [facility] Start: 2005 Screening for malign ant neoplasm of cervix Pap smear [facility] Start: 09-30-2003 DTaP/Tdap/Td vaccine (1 - Tdap) DTaP/Tdap/Td vaccine (1 - Tdap) [facility] Start: 2002 Hepatitis C screening Hepatitis C sc reen [facility] Start: 09-30-1999 HIV screening HIV screen [facility] Start: 1996 Depression Screen Depression Screen [facility] Start: 1985 Varicella vaccine (1 of 2 - 2-dose childhood series) Varicella vaccine (1 of 2 - 2-dose childhood series) [facility] Start: 04-01-1985 COVID-19 Vaccine (#1) COVID-19 Vacci ne (#1) [facility] Payers Date Payer Category Payer Unknown [id number] 2.16.84 [id number] 1984 Unknown [id number] 2.16.84 [id number] 1984 Unknown [id number] 2.16.84 [id number] 1984 Unknown [id number] 2.16.84 [id number] 1984 Unknown [id number] [id number] 1959 Self-pay [id number] 1959 Unknown [id number] Social History Date Type Detail Facility [facility]: [facility] of tobacco use [facility]igarette Sm[facility] [employer] Work Phone: Start: 01-23-2019 Cigarettes smoked current (pack per day) - Reported 0.5 [employer] Phone: Start: 01-23-2019 Tobacco use and exposure Smoke less tobacco non-user [employer] Phone: Start: 1985 Sex Assigned At Not on file B ON [employer] Phone: Start: 06-17-2022 End: 06-27-2022 Exposure to SARS-CoV-2 (event) Not sure [employer] Phone: Hospital Discharge instructions 06-27-2022 Discharge InstructionsAttachments [...] cannot be sent through Care Everywhere.Ankle Sprain (Croatian)RICE: General Info (Croatian)Crutch Instructions: General Info (Croatian)documented in this encounter [employer] Phone: Evaluation note Note Date & Type Note Facility Evaluation note Diagnosis Sprain of other ligament of left ankle, initial encounter- Primary documented in this encounter [employer] Phone: Summary Purpose Family History No Family History Records FoundNo Family History Records Found Advance Directives No Advanced Directives Records FoundNo Advanced Directives Records Found Additional Source Comments INFORMATION SOURCE (unrecogn ized section and content) DATE CREATED AUTHOR 09/16/2021 [facility] DATE CREATED AUTHOR AUTHOR'S ORGANIZ ATION [facility]2022 [facility] Reason for Visit (unrecogniz ed section and content) Reason Comments Ankle Pain Fell down 2 steps th inks she rolled it pain on lateral left ankle minimal swelling pulses intact, this happened at 1630 today Care Teams (unrecognized sec tion and content) [employer] Relationship Specialty Start Date End Date Arnulfo Veloz MD [address] [place] [address] PCP - General 10/19/15 FOR RECORDS PERTAINING [...] BE BASED ON THE PRIMARY CLINICAL RECORDS. [facility]. provides no warranty or guarantee of the accuracy or completeness of information in this document.
[2024-01-31 13:07] LABS: Free T3 2.98 pg/mL (2.18-3.98)
== END 2024-01-31 10:26 | disposition home or self-care (01) ==
LOC: US 10:25
PROVIDERS: PCP Family Medicine; Visit Provider Family Medicine
DX: R10.11 Right upper quadrant pain (principal); E03.9 Hypothyroidism, unspecified
CPT/HCPCS: 36415; 76705; 84436; 84443; 84481

== ENCOUNTER 2024-04-17 08:56 | Outpatient (OUT) | payer OTHER, SELFPAY ==
--- NOTE | 2024-04-17 08:56 | NM_ITS ---
The [address] [address] Patient Name: JUNE COTO MRN: [id number] date: 1985 Sex: F Assigned Patient Location: [place] Current Patient Location: [place] Accession/Order Number: [id number] Exam Date: 04/17/2024 08:56 Report Date: 04/17/2024 13:07 At the request of: ARNULFO LOVE Procedure: MA hepatobiliary w pharm EXAMINATION: [place] hepatobiliary w pharm HISTORY: RIGHT UPPER QUADRANT PAIN COMPARISON: No relevant comparison available. TECHNIQUE: Radionuclide hepatobiliary imaging was performed after intravenous injection of 4.8 mCi Tc-99m mebrofenin with sequential acquisitions every 1 minute for one hour. Hepatobiliary imaging with gallbladder ejection fraction analysis was then performed with sequential imaging every 1 minute for 60 minutes after the patient drank 8 ounces of ensure. FINDINGS: LIVER: Normal, prompt and uniform radiotracer uptake and clearing. BILIARY DUCTS: Normal radioisotopic biliary excretion. GALLBLADDER: Normal with no evidence of cystic duct obstruction. INTESTINE: Normal with no evidence of common biliary ductal obstruction. EJECTION FRACTION: 80 % within 60 minutes. (Normal EF > 38%). OTHER: Negative. MA/MA hepatobiliary w pharm IMPRESSION: Normal hepatobiliary scan and pharmacologic ejection fraction Electronically authenticated by: LION BEEBE Date: 04/17/2024 13:07
== END 2024-04-17 08:57 | disposition home or self-care (01) ==
LOC: NM 08:56
PROVIDERS: PCP Family Medicine; Visit Provider Family Medicine
DX: R10.11 Right upper quadrant pain (principal)
CPT/HCPCS: 78227; A9537

== ENCOUNTER 2024-05-01 08:51 | Outpatient (OUT) | payer OTHER, SELFPAY ==
--- NOTE | 2024-05-01 08:53 | FL_ITS ---
The [address] [address] Patient Name: JUNE COTO MRN: [id number] date: 1985 Sex: F Assigned [place] Location: [place] Current [place] Location: [place] Accession/Order Number: [id number] Exam Date: 05/01/2024 09:10 Report Date: 05/01/2024 09:55 At the request of: ARNULFO LOVE Procedure: FL upper GI w air PROCEDURE: FL upper GI w air, FL cineradiography COMPARISON: None. FLUORO DOSE: mGy Reference air kerma (Ka,r) HISTORY: Right Upper Quadrant Pain TECHNIQUE: An air contrast upper gastrointestinal series was performed in the usual manner. Standard level fluoroscopic mode of operation utilized. FINDINGS: ESOPHAGUS:Normal. No visible obstruction, dilatation, reflux or hernia STOMACH: Normal. No obstruction, mass, or ulceration. Normal motility. DUODENUM:Normal. No ulceration or diverticulum. OTHER: Negative. FL/FL upper GI w air IMPRESSION: Normal examination. Electronically authenticated by: LION BEEBE Date: 05/01/2024 09:55
== END 2024-05-01 08:52 | disposition home or self-care (01) ==
PROVIDERS: PCP Family Medicine; Visit Provider Family Medicine
DX: R10.11 Right upper quadrant pain (principal)
CPT/HCPCS: 36415; 74246; 76120; 82533

== ENCOUNTER 2024-05-08 08:59 | Outpatient (OUT) | payer OTHER, SELFPAY ==
--- NOTE | 2024-05-08 09:02 | FL_ITS ---
The [address] [address] Patient Name: JUNE COTO MRN: [id number] date: 1985 Sex: F Assigned Patient Location: [place] Current [place] Location: [place] Accession/Order Number: [id number] Exam Date: 05/08/2024 09:10 Report Date: 05/08/2024 10:27 At the request of: ARNULFO LOVE Procedure: FL barium swallow PROCEDURE: FL barium swallow, FL cineradiography COMPARISON: None. HISTORY: right upper quadrant pain R10.11 TECHNIQUE: An air contrast esophagram series was performed in the usual manner. Standard level fluoroscopic mode of operation utilized. FINDINGS: ESOPHAGUS:No visible obstruction, dilatation, reflux or hernia OTHER: Negative. FL/FL barium swallow IMPRESSION: 1. Normal esophagram. 2. Patient describes continuing right upper quadrant intermittent pain with multiple negative prior studies. Patient required about low-grade colitis and antibiotic treatment as well as bowel cleansing, both of which may at some clinical benefit. Patient was recommended to follow up with family physician. Electronically authenticated by: JOHNNY SESAY Date: 05/08/2024 10:27
--- OUTSIDE RECORDS SUMMARY | 2024-05-08 09:04 | XMS_ITS | CCD ---
Author Organization [facility] Care Team Providers Care Material Planning Analyst Name Role Phone DR ARNULFO VELOZ Attending Unavailable IVAN, DR ARREDONDO Primary Care Unavailable IVAN, DR ARREDONDO Admitting Unavailable IVAN, DR ARREDONDO Admitting Unavailable IVAN, DR ARREDONDO Attending Unavailable IVAN, DR ARREDONDO Consulting Unavailable IVAN, DR ARREDONDO Primary Care Unavailable IVAN, DR ARREDONDO Attending Unavailable IVAN, DR ARREDONDO Consulting Unavailable IVAN, DR ARREDONDO Primary Care Unavailable IAVN, DR ARREDONDO Admitting Unavailable IVAN, DR ARREDONDO Attending Unavailable IVAN, DR ARREDONDO Primary Care Unavailable IVAN, DR ARREDONDO Admitting Unavailable Arnulfo Veloz MD Primary Care Provider [phone] ARNULFO VELOZ Primary Care Unavailable Allergies Allergy Classification Reported Allergen(s) Allergy Type Date of Onset Reaction(s) Facility (2 sources) Amoxicillin Drug Allergy [facility] Repository (1 source) Amoxicillin Drug Allergy 10-19-2015 [facility] Medications Current Medications Medication Drug Class(es) Dates Sig (Normalized) Sig (Original) indomethacin 50 mg oral capsule (1 source) Nonsteroidal Anti-inflammatory Drug Start: 01-23-2019 take 1 capsule by mouth three times daily as needed for pain indomethacin (INDOCIN) 50 MG capsule Take 1 capsule by mouth 3 times daily as needed for Pain (Headache) 12 capsule 0 01/23/2019 Active thyroid (alf) 60 mg oral tablet (1 source) take [...] Sunny Cronin MD 06/27/22 Final result Normal [facility] No acute osseous abnormality. [facility] EXAMINATION: THREE XRAY VIEWS OF THE LEFT ANKLE 06/27/2022 6:30 pm COMPARISON: None. HISTORY: Acute pain. FINDINGS: No acute fracture or dislocation. Minimal soft tissue swelling best seen on the lateral view. [facility] Sunny Cronin MD - 06/27/2022 EXAMINATION: THREE XRAY VIEWS OF THE LEFT ANKLE 06/27/2022 6:30 pm COMPARISON: None. HISTORY: Acute pain. FINDINGS: No acute fracture or dislocation. Minimal soft tissue swelling best seen on the lateral view. IMPRESSION: No acute osseous abnormality. [facility] Phone: Radiology Study observation (narrative) [facility] [employer] Phone: XR ANKLE LEFT (MIN 3 VIEWS)O rdered By: Sunny Cronin on 06-27-2022 [facility] [employer] Phone: FREE THYROXINE INDEX T7on FTI 3.59 Normal [facility] Comment on above: Performed By: #### T 7, TSH #### [facility] [address] [place] [address] Dr. Oscar Burnett T3U 37.0 % Normal 23.5-40.5 [facility] Comment on above: Performed By: #### T 7, TSH #### [facility] [address] [address] [address] Oscar Burnett T4 [Mass/Vol] 9.70 ug/dL Normal 5.53-11.00 [facility] Comment on above: Performed By: #### T 7, TSH #### [facility] [address] [place] [address] Dr. Oscar Burnett TSHon 09-13-2021 TSH Qn m[IU]/L Critically low 0.470-4.680 [facility] Comment on above: Performed By: #### T 7, TSH #### [facility] [address] [place] [address] Dr. Oscar Burnett TSH RANGE SEE BELOW Normal [facility] Comment on above: Result Comment: <0.3 4 UIU/ml HYPERTHYROID 0.34-5.60 UIU/ml EUTHYROID >5.60 UIU/ml HYPOTHYROID Performed By: #### T 7, TSH #### [facility] [address] [place] [address] Dr. Oscar Burnett INSULINon 05-07-2021 Insulin 6.7 uIU/mL Normal 2.6-24.9 [facility] Comment on above: Performed By: #### I NSULIN #### [facility] [address] [place] [address] Dr. Oscar Burnett CBC AUTO DIFFon 05-06-2021 BASO # 0.2 103/ul Critically high 0.0-0.1 [facility] Comment on above: Performed By: #### C BC #### [facility] [address] [place] [address] Dr. Oscar Burnett Basophils/100 WBC (Bld) 2.2 % Critically high 0.2-2.0 [facility] Comment on above: Performed By: #### C BC #### [facility] [address] [place] [address] Dr. Oscar Burnett EO # 1.1 103/ul Critically high 0.0-0.7 [facility] Comment on above: Performed By: #### C BC #### [facility] [address] [place] [address] Dr. Oscar Burnett Eosinophils/100 WBC (Bld) 10.7 % Critically high 0.9-7.0 [facility] Comment on above: Performed By: #### C BC #### [facility] [address] [place] [address] Dr. Oscar Burnett Erythrocyte distribution width (RBC) [Ratio] 14.3 % Normal 11.0-15.0 [facility] Comment on above: Performed By: #### C BC #### [facility] [address] [place] [address] Dr. Oscar Burnett Hematocrit (Bld) [Volume fraction] 44.9 % Normal 36.0-48.0 [facility] Comment on above: Performed By: #### C BC #### [facility] [address] [place] [address] Dr. Oscar Burnett Hemoglobin (Bld) [Mass/Vol] 14.5 g/dL Normal 12.0-16.0 [facility] Comment on above: Performed By: #### C BC #### [facility] [address] [place] [address] Dr. Oscar Burnett IG # 0.02 10e3/ul Normal 0.00-0.03 [facility] Comment on above: Performed By: #### C BC #### [facility] [address] [place] [address] Dr. Oscar Burnett IG % 0.2 % Normal 0.0-0.5 [facility] Comment on above: Performed By: #### C BC #### [facility] [address] [place] [address] Dr. Oscar Burnett LYMPH # 3.5 103/ul Normal 1.2-3.8 [facility] Comment on above: Performed By: #### C BC #### [facility] [address] [place] [address] Dr. Oscar Burnett Lymphocytes/100 WBC (Bld) 34.4 % Normal 20.5-60.0 [facility] Comment on above: Performed By: #### C BC #### [facility] [address] [place] [address] Dr. Oscar Burnett MANUAL DIFF REQ NO Normal [facility] Comment on above: Performed By: #### C BC #### [facility] [address] [address] [address] Oscar Burnett MCH (RBC) [Entitic mass] 29.1 pg Normal 26.7-34.0 [facility] Comment on above: Performed By: #### C BC #### [facility] [address] [place] [address] Dr. Oscar Burnett MCHC (RBC) [Mass/Vol] 32.3 g/dL Normal 29.9-35.2 [facility] Comment on above: Performed By: #### C BC #### [facility] [address] [place] [address] Dr. Oscar Burnett MCV (RBC) [Entitic vol] 90.0 fL Normal 81.0-99.0 [facility] Comment on above: Performed By: #### C BC #### [facility] [address] [place] [address] Dr. Oscar Burnett MONO # 0.6 103/ul Normal 0.3-0.8 [facility] Comment on above: Performed By: #### C BC #### [facility] [address] [place] [address] Dr. Oscar Burnett Monocytes/100 WBC (Bld) 5.6 % Normal 1.7-12.0 [facility] Comment on above: Performed By: #### C BC #### [facility] [address] [place] [address] Dr. Oscar Burnett NEUT # 4.7 103/ul Normal 1.4-6.5 [facility] Comment on above: Performed By: #### C BC #### [facility] [address] [place] [address] Dr. Oscar Burnett Neutrophils/100 WBC (Bld) 46.9 % Normal 43.0-75.0 [facility] Comment on above: Performed By: #### C BC #### [facility] [address] [place] [address] Dr. Oscar Burnett Platelet mean volume (Bld) [Entitic vol] 10.1 fL Normal 9.5-13.5 [facility] Comment on above: Performed By: #### C BC #### [facility] [address] [address] [address] Oscar Burnett PLT 357 103/ul Normal 150-450 [facility] Comment on above: Performed By: #### C BC #### [facility] [address] [address] [address] Oscar Burnett RBC 4.99 106/ul Normal 4.20-5.40 [facility] Comment on above: Performed By: #### C BC #### [facility] [address] [address] [address] Oscar Burnett WBC 10.1 103/ul Normal 4.0-11.0 [facility] Comment on above: Performed By: #### C BC #### [facility] [address] [address] [address] Oscar Burnett FREE THYROXINE INDEX T7on FTI 0.25 Normal [facility] Comment on above: Performed By: #### T 7, CMP, TSH, LIPID #### [facility] [address] [address] [address] Oscar Burnett T3U 23.0 % Critically low 23.5-40.5 [facility] Comment on above: Performed By: #### T 7, CMP, TSH, LIPID #### [facility] [address] [address] [address] Oscar Burnett T4 [Mass/Vol] 1.10 ug/dL Critically low 5.53-11.00 [facility] Comment on above: Performed By: #### T 7, CMP, TSH, LIPID #### [facility] [address] [address] [address] Oscar Burnett GLYCOHEMOGLOBIN A1Con 2020 ADA RECOMMENDATION ADA THERAPEUTIC TARGET 6.0 - 7.0 ACTION SUGGESTED > 7.0 [facility] Comment on above: Performed By: #### A 1C #### [facility] [address] [address] [address] Oscar Burnett Glucose [Mass/Vol] 123 mg/dL Normal [facility] Comment on above: Performed By: #### A 1C #### [facility] [address] [address] [address] Oscar Burnett HbA1c (Bld) [Mass fraction] 5.9 % Normal <=6.0 [facility] Comment on above: Performed By: #### A 1C #### [facility] [address] [address] [address] Oscar Burnett IRONon 05-06-2021 Iron [Mass/Vol] 50.0 ug/dL Normal 37.0-170.0 [facility] Comment on above: Performed By: #### I GILDA #### [facility] [address] [address] [address] Oscar Burnett LIPID PROFILEon 05-06-2021 CHOL-HDL RATIO NORM SEE BELOW Normal [facility] Comment on above: Result Comment: 3.3 - 4.4 LOW RISK 4.4 - 7.1 AVERAGE RISK 7.1 - 11.0 MODERATE RISK >11.0 HIGH RISK Performed By: #### T 7, CMP, TSH, LIPID #### [facility] [address] [address] [address] Oscar Burnett Cholesterol [Mass/Vol] 231 mg/dL Critically high <=200 [facility] Comment on above: Performed By: #### T 7, CMP, TSH, LIPID #### [facility] [address] [address] [address] Oscar Burnett Cholesterol in HDL [Mass/Vol] 46 mg/dL Normal [facility] Comment on above: Performed By: #### T 7, CMP, TSH, LIPID #### [facility] [address] [address] [address] Oscar Burnett Cholesterol in LDL [Mass/Vol] 148.4 mg/dL Normal [facility] Comment on above: Performed By: #### T 7, CMP, TSH, LIPID #### [facility] [address] [address] [address] Oscar Burnett Cholesterol.total/Ch olesterol in HDL [Mass ratio] 5.0 {ratio} Normal [facility] Comment on above: Performed By: #### T 7, CMP, TSH, LIPID #### [facility] [address] [address] [address] Oscar Burnett HDL NORMAL > or = 60 mg/dl - LOW CARDIOVASCULAR RISK <40 mg/dl - HIGH CARDIOVASCULAR RISK Normal [facility] Comment on above: Performed By: #### T 7, CMP, TSH, LIPID #### [facility] [address] [address] [address] Oscar Burnett LDL CALC NORMAL SEE BELOW Normal [facility] Comment on above: Result Comment: <100 mg/dl OPTIMAL 100 - 129 mg/dl NEAR OR ABOVE OPTIMAL 130 - 159 mg/dl BORDERLINE HIGH 160 - 189 mg/dl HIGH >190 mg/dl VERY HIGH Performed By: #### T 7, CMP, TSH, LIPID #### [facility] [address] [address] [address] Oscar Burnett Triglyceride [Mass/Vol] 183 mg/dL Critically high <=150 [facility] Comment on above: Performed By: #### T 7, CMP, TSH, LIPID #### [facility] [address] [address] [address] Oscar Burnett VLDL CALC 36.6 mg/dL Normal [facility] Comment on above: Performed By: #### T 7, CMP, TSH, LIPID #### [facility] [address] [address] [address] Oscar Burnett PROF 14(COMP METB)on 021 Albumin [Mass/Vol] 3.9 g/dL Normal 3.5-5.0 [facility] Comment on above: Performed By: #### T 7, CMP, TSH, LIPID #### [facility] [address] [address] [address] Oscar Burnett Albumin/Globulin [Mass ratio] 1.1 {ratio} Normal [facility] Comment on above: Performed By: #### T 7, CMP, TSH, LIPID #### [facility] [address] [address] [address] Oscar Burnett ALP [Catalytic activity/Vol] 75 U/L Normal 38-126 [facility] Comment on above: Performed By: #### T 7, CMP, TSH, LIPID #### [facility] [address] [address] [address] Oscar Burnett ALT [Catalytic activity/Vol] 26 U/L Normal 9-52 [facility] Comment on above: Performed By: #### T 7, CMP, TSH, LIPID #### [facility] [address] [place] [address] Dr. Oscar Burnett Anion gap [Moles/Vol] 9.0 mmol/L Normal [facility] Comment on above: Performed By: #### T 7, CMP, TSH, LIPID #### [facility] [address] [place] [address] Dr. Oscar Burnett AST [Catalytic activity/Vol] 22 U/L Normal 14-36 [facility] Comment on above: Performed By: #### T 7, CMP, TSH, LIPID #### [facility] [address] [place] [address] Dr. Oscar Burnett Bilirubin [Mass/Vol] 0.3 mg/dL Normal 0.2-1.3 [facility] Comment on above: Performed By: #### T 7, CMP, TSH, LIPID #### [facility] [address] [place] [address] Dr. Oscar Burnett Calcium [Mass/Vol] 8.6 mg/dL Normal 8.4-10.2 [facility] Comment on above: Performed By: #### T 7, CMP, TSH, LIPID #### [facility] [address] [place] [address] Dr. Oscar Burnett Chloride [Moles/Vol] 102 mmol/L Normal 98-107 [facility] Comment on above: Performed By: #### T 7, CMP, TSH, LIPID #### [facility] [address] [place] [address] Dr. Oscar Burnett CO2 [Moles/Vol] 28.5 mmol/L Normal 22.0-30.0 [facility] Comment on above: Performed By: #### T 7, CMP, TSH, LIPID #### [facility] [address] [place] [address] Dr. Oscar Burnett Creatinine [Mass/Vol] 1.18 mg/dL Critically high 0.52-1.04 [facility] Comment on above: Performed By: #### T 7, CMP, TSH, LIPID #### [facility] [address] [address] [address] Oscar Burnett EGFR-AF TRISTANIAN >60 Normal >=60 [facility] Comment on above: Performed By: #### T 7, CMP, TSH, LIPID #### [facility] [address] [address] [address] Oscar Burnett EGFR-NON AF TRISTANIAN 52 mL/min/1.73m2 Critically low >=60 [facility] Comment on above: Performed By: #### T 7, CMP, TSH, LIPID #### [facility] [address] [place] [address] Dr. Oscar Burnett Globulin (S) [Mass/Vol] 3.5 g/dL Normal [facility] Comment on above: Performed By: #### T 7, CMP, TSH, LIPID #### [facility] [address] [place] [address] Dr. Oscar Burnett Glucose [Mass/Vol] 98 mg/dL Normal 74-106 [facility] Comment on above: Performed By: #### T 7, CMP, TSH, LIPID #### [facility] [address] [place] [address] Dr. Oscar Burnett Potassium [Moles/Vol] 3.5 mmol/L Normal 3.4-5.0 [facility] Comment on above: Performed By: #### T 7, CMP, TSH, LIPID #### [facility] [address] [place] [address] Dr. Oscar Burnett Protein [Mass/Vol] 7.4 g/dL Normal 6.1-8.2 [facility] Comment on above: Performed By: #### T 7, CMP, TSH, LIPID #### [facility] [address] [place] [address] Dr. Oscar Burnett Sodium [Moles/Vol] 136 mmol/L Critically low 137-145 [facility] Comment on above: Performed By: #### T 7, CMP, TSH, LIPID #### [facility] [address] [address] [address] Oscar Burnett Urea nitrogen [Mass/Vol] 8.0 mg/dL Normal 7.0-17.0 [facility] Comment on above: Performed By: #### T 7, CMP, TSH, LIPID #### [facility] [address] [address] [address] Oscar Burnett Urea nitrogen/Creatinine [Mass ratio] 6.8 mg/mg Normal [facility] Comment on above: Performed By: #### T 7, CMP, TSH, LIPID #### [facility] [address] [address] [address] Oscar Burnett TSHon 05-06-2021 TSH Qn m[IU]/L Critically high 0.470-4.680 [facility] Comment on above: Performed By: #### T 7, CMP, TSH, LIPID #### [facility] [address] [address] [address] Oscar Burnett TSH RANGE SEE BELOW Normal [facility] Comment on above: Result Comment: <0.3 4 UIU/ml HYPERTHYROID 0.34-5.60 UIU/ml EUTHYROID >5.60 UIU/ml HYPOTHYROID Performed By: #### T 7, CMP, TSH, LIPID #### [facility] [address] [place] [address] Dr. Oscar Burnett Vital Signs Date Time Vital Sign Value Performing Clinician Usmani venus 06-27-2022 20:38-0500 Heart rate 88 /min Arnulfo Veloz MD Work Phone: [facility] 06-27-2022 20:00-0500 Diastolic blood pressure 79 mm[Hg] Arnulfo Veloz MD Work Phone: [facility] 06-27-2022 20:00-0500 Respiratory rate 18 /min Arnulfo Veloz MD Work Phone: [facility] 06-27-2022 20:00-0500 SaO2% (BldA) [Mass fraction] 100 % Arnulfo Veloz MD Work Phone: [facility] [employer] 06-27-2022 20:00-0500 Systolic blood pressure 134 mm[Hg] Arnulfo Veloz MD Work Phone: [facility] [employer] 06-27-2022 18:21-0500 Body height 165.1 cm Arnulfo Veloz MD Work Phone: [facility] 06-27-2022 18:21-0500 Body mass index (BMI) [Ratio] 28.46 kg/m2 Arnulfo Veloz MD Work Phone: [facility] 06-27-2022 18:21-0500 Body temperature 98.1 [degF] Arnulfo Veloz MD Work Phone: [facility] 06-27-2022 18:21-0500 Body weight 77.56 kg Arnulfo Veloz MD Work Phone: [facility] Encounters Encounter Date Encounter Type Care Provider Facility Start: 06-27-2022 Emergency department patient visit [place] [facility] Start: 06-27-2022 End: 06-27-2022 Emergency department patient visit Arnulfo Veloz MD Work Phone: [facility] ED Comment on above: Sprain of other liga ment of left ankle, initial encounter (Primary Dx) Start: 09-13-2021 End: 09-14-[address] ARNULFO VELOZ Facility:[facility] Start: 06-10-[address] ARNULFO VELOZ Facility :[facility] Start: 05-14-2021 Encounter for genera l adult medical examination without abnormal findings DR ARNULFO VELOZ [facility] Start: 05-06-2021 End: 05-07-2021 [...] 02-14-2022 Influenza vaccination Flu vaccine (# 1) [facility] Start: 09-30-2019 Diabetes screen Diabetes screen [facility] Start: 2014 Screening for malign ant neoplasm of cervix [facility] Start: 2005 Screening for malign ant neoplasm of cervix Pap smear [facility] Start: 09-30-2003 DTaP/Tdap/Td vaccine (1 - Tdap) DTaP/Tdap/Td vaccine (1 - Tdap) [facility] Start: 2002 Hepatitis C screening Hepatitis C sc reen [facility] Start: 09-30-1999 HIV screening HIV screen [facility] Start: 1996 Depression Screen Depression Screen [facility] Start: 1985 Varicella vaccine (1 of 2 - 2-dose childhood series) Varicella vaccine (1 of 2 - 2-dose childhood series) [facility] Start: 04-01-1985 COVID-19 Vaccine (#1) COVID-19 Vacci ne (#1) [facility] Payers Date Payer Category Payer Unknown [id number] 2.16.84 [id number] 1984 Unknown [id number] 2.16.84 [id number] 1984 Unknown [id number] 2.16.84 [id number] 1984 Unknown [id number] 2.16.84 [id number] 1984 Unknown [id number] 2.16.8 [id number] 1959 Self-pay [id number] 1959 Unknown [id number] Social History Date Type Detail Facility Start: 01-23-2019 [facility] of tobacco use [facility]ig[facility] [employer] Work Phone: Start: 01-23-2019 Cigarettes smoked current (pack per day) - Reported 0.5 [employer] Phone: Start: 01-23-2019 Tobacco use and exposure Smoke less tobacco non-user [employer] Phone: Start: 1985 Sex Assigned At Not on file B ON [employer] Phone: Start: 06-17-2022 End: 06-27-2022 Exposure to SARS-CoV-2 (event) Not sure [facility] Phone: Hospital Discharge instructions 06-27-2022 Discharge InstructionsAttachments [...] cannot be sent through Care Everywhere.Ankle Sprain (Honduran)RICE: General Info (Honduran)Crutch Instructions: General Info (Honduran)documented in this encounter [employer] Phone: Evaluation note Note Date & Type Note Facility Evaluation note Diagnosis Sprain of other ligament of left ankle, initial encounter- Primary documented in this encounter [employer] Phone: Summary Purpose Family History No Family History Records FoundNo Family History Records Found Advance Directives No Advanced Directives Records FoundNo Advanced Directives Records Found Additional Source Comments INFORMATION SOURCE (unrecogn ized section and content) DATE CREATED AUTHOR 09/16/2021 [facility] DATE CREATED AUTHOR AUTHOR'S ORGANIZ ATION [facility]2022 [facility] Reason for Visit (unrecogniz ed section and content) Reason Comments Ankle Pain Fell down 2 steps th inks she rolled it pain on lateral left ankle minimal swelling pulses intact, this happened at 1630 today Care Teams (unrecognized sec tion and content) Material Planning Analyst Relationship Specialty Start Date End Date Arnulfo Veloz MD [address] [place] [address] PCP - General 10/19/15 FOR RECORDS PERTAINING [...] BE BASED ON THE PRIMARY CLINICAL RECORDS. [facility] [employer] [facility]. provides no warranty or guarantee of the accuracy or completeness of information in this document.
--- NOTE | 2024-05-08 09:07 | FL_ITS ---
The [address] [address] Patient Name: JUNE COTO MRN: [id number] date: 1985 Sex: F Assigned Patient Location: [place] Current Patient Location: [place] Accession/Order Number: [id number] Exam Date: 05/08/2024 09:10 Report Date: 05/08/2024 10:27 At the request of: ARNULFO LOVE Procedure: FL cineradiography PROCEDURE: FL barium swallow, FL cineradiography COMPARISON: None. HISTORY: right upper quadrant pain R10.11 TECHNIQUE: An air contrast esophagram series was performed in the usual manner. Standard level fluoroscopic mode of operation utilized. FINDINGS: ESOPHAGUS:No visible obstruction, dilatation, reflux or hernia OTHER: Negative. FL/FL cineradiography IMPRESSION: 1. Normal esophagram. 2. Patient describes continuing right upper quadrant intermittent pain with multiple negative prior studies. Patient required about low-grade colitis and antibiotic treatment as well as bowel cleansing, both of which may at some clinical benefit. Patient was recommended to follow up with family physician. Electronically authenticated by: JOHNNY SESAY Date: 05/08/2024 10:27
== END 2024-05-08 09:00 | disposition home or self-care (01) ==
LOC: FL 09:00
PROVIDERS: PCP Family Medicine; Visit Provider Family Medicine
DX: R10.11 Right upper quadrant pain (principal)
CPT/HCPCS: 74220; 76120

== ENCOUNTER 2025-05-30 10:31 | Outpatient (OUT) | payer OTHER, SELFPAY ==
--- OUTSIDE RECORDS SUMMARY | 2025-05-30 10:36 | XMS_ITS | Clinical Summary ---
Author Organization [id number] [address] 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
[2025-05-30 11:13] LABS: Hematocrit 41.2 % (36.0-48.0); Hemoglobin 13.6 g/dL (12.0-16.0); Immature Granulocytes Abs Auto 0.03 10^3/uL (0.00-0.03); Immature Granulocytes Pct Auto 0.4 % (0.0-0.5); Lymphocytes Absolute Auto 1.7 10^3/uL (1.2-3.8); Mean Corpuscular HGB Conc 33.0 g/dL (29.9-35.2); Mean Corpuscular Hemoglobin 28.8 pg (26.7-34.0); Mean Corpuscular Volume 87.3 fL (81.0-99.0); Platelet Count 321 10^3/uL (150-450); Red Blood Count 4.72 10^6/uL (4.20-5.40); White Blood Count 8.4 10^3/uL (4.0-11.0)
[2025-05-30 12:00] LABS: Alanine Aminotransferase 21 U/L (14-59); Albumin Globulin Ratio 1.1; Albumin Level 3.9 g/dL (3.4-5.0); Alkaline Phosphatase 66 U/L (46-116); Anion Gap 12.5; Aspartate Amino Transferase 13 U/L (15-37); Blood Urea Nitrogen 8.0 mg/dL (7.0-18.0); Calcium 8.8 mg/dL (8.5-10.1); Carbon Dioxide 28.7 mmol/L (21.0-32.0); Chloride 104 mmol/L (98-107); Cholesterol 174 mg/dL (<=200); Estimated GFR (African America >60 (>=60 mL/min/1.73m^2); Estimated GFR (Non-African Ame 59 (>=60 mL/min/1.73m^2); Free T3 2.57 pg/mL (2.18-3.98); Globulin 3.4 g/dL; Glucose 103 mg/dL (74-106); HDL Cholesterol 46 mg/dL (40-60); NT Pro B Type Natriuretic Pept 60.0 pg/mL (<=450.0); Potassium 4.2 mmol/L (3.5-5.1); Sodium 141 mmol/L (136-145); Total Protein 7.3 g/dL (6.4-8.2); Triglycerides 84 mg/dL (<=150); VLDL CHOLESTEROL 16.8 mg/dL
[2025-05-30 12:06] LABS: Iron 73.0 ug/dL (50.0-170.0)
== END 2025-05-30 10:32 | disposition home or self-care (01) ==
LOC: LAB 10:32
PROVIDERS: PCP Family Medicine; Visit Provider Family Medicine
DX: Z00.00 Encounter for general adult medical examination without abnormal findings (principal); R03.0 Elevated blood-pressure reading, without diagnosis of hypertension
CPT/HCPCS: 36415; 80053; 80061; 83036; 83525; 83540; 83880; 84436; 84443; 84481; 84484; 85025